=== PATIENT | female | born 1975 | race Caucasian/White ===

== ENCOUNTER 2016-05-02 11:24 | Emergency (ER) | payer OTHER ==
[~2016-05-02] VITALS: Ht 167.6 cm; Wt 74.9 kg
[~2016-05-02 11:24] MED LIST: ANTIBIOTIC; BACLOFEN10 MG; BACTRIM,SEPT1 TABLET PO; BCP; CLARITIN10 M3 PO; DEPO-PROVER150 MG/ML; ESCITALOPRAM OXA5 MG PO; ESOMEPRAZOLE MA40 MG PO; FLINTSTONES1 TABLET PO; FLONASE16 G1 BOTH NARES; FLOVENT DISKUS1 DIS2 IH; FLUTICASONE PRO16 GM; IBUPROFEN800 MG PO; IMITREX50 MG PO; IRON; LORATADINE10 M2; MICROGESTIN FE1 EAC1 PO; MOBIC7.5 MG PO; MOTRIN600 MG PO; MOTRIN800 MG PO; NAPROSYN500 MG PO; NAPROXEN; NAPROXEN500 MG PO; OMEPRAZOLE; OMEPRAZOLE40 M1 PO; ORTHOTRICYCLINE; PEPCID20 MG PO; PRILOSEC40 MG PO; PROAIR HFA8.5 GM; PROAIR HFA8.5 GM IH; PROMETHAZINE HC25 M1 PO; RANITIDINE HCL150 M1; SKELAXIN800 MG PO; SUMATRIPTAN SUC50 MG PO; TRIAMTERENE-HC1 EACH; TYLENOL WITH C1 EACH PO; ULTRAM50 MG PO; VICODIN 5-3001 EACH PO; VICODIN 5-5001 EACH PO; VICODIN,LORT1 TABLET PO; ZANTAC150 MG PO; [UNRECOGNIZED DRUG - CODE]; [UNRECOGNIZED DRUG - REMARK]
[2016-05-02 12:46] LABS: HEMATOCRIT 42.7 % (36.0-46.0); MCH 31.9 PG (29.0-34.0); MCHC 33.7 G/DL (30.0-36.0); MCV 94.7 FL (83-99); PLATELET COUNT 290 K/uL (156-360); RBC DIS.WIDTH-CV 12.2 % (11.8-14.6); RBC DIS.WIDTH-SD 42.4 % (39-53); RED BLOOD COUNT 4.51 M/uL (3.80-5.20); WHITE BLOOD COUNT 6.5 K/uL (4.1-10.2)
[2016-05-02 13:03] LABS: CHLORIDE 104 mEq/L (99-109); POTASSIUM 3.5 mEq/L (3.7-5.4); SODIUM 140 mEq/L (136-147)
[2016-05-02 13:04] LABS: GLUCOSE 83 mg/dL (70-99)
[2016-05-02 13:06] LABS: ANION GAP 9 MEQ/L (2-14)
[2016-05-02 13:08] LABS: GFR ESTIMATE (CALCULATED) > 59 mL/min/
[2016-05-02 13:09] LABS: UREA NITROGEN (BUN) 11 mg/dL (9-23)
[2016-05-02 13:11] LABS: TROP-I INTERPRETATION NEGATIVE; TROPONIN-I < 0.01 ng/mL (0.0-0.30)
[2016-05-02 13:44] LABS: TOTAL BILIRUBIN 0.3 mg/dL (0.0-1.0)
[2016-05-02 13:45] LABS: ALKALINE PHOSPHATASE 80 IU/L (3-129)
[2016-05-02 13:48] LABS: DIRECT BILIRUBIN 0.1 mg/dL (0.0-0.3)
[2016-05-02 13:49] LABS: LIPASE 21 U/L (1.0-51.0)
[2016-05-02 13:54] LABS: QUANTITATIVE HCG < 4.0 MIU/ML
[2016-05-02 15:57] LABS: TROP-I INTERPRETATION NEGATIVE; TROPONIN-I < 0.01 ng/mL (0.0-0.30)
[2016-05-02] MEDS ORDERED: OMEPRAZOLE40 M1 PO (16:26)
[2016-05-02 16:57] VITALS: BP 135/91
== END 2016-05-02 16:59 | disposition home or self-care (01) ==
LOC: EME 11:24
PROVIDERS: Physician Assistant
DX: R07.9 Chest pain, unspecified (principal); K21.9 Gastro-esophageal reflux disease without esophagitis; R42 Dizziness and giddiness; R51 Headache
CPT/HCPCS: 71020; 80048; 80076; 83690; 84484; 84702; 85027; 93005; 99281; 99285

== ENCOUNTER 2016-11-07 09:15 | Day surgery (SDC) | payer OTHER ==
[~2016-11-07] VITALS: Ht 157.5 cm; Wt 81.6 kg
[~2016-11-07 09:15] MED LIST changes: +CALAN40 MG PO; +CYMBALTA60 MG PO; +FLEXERIL10 MG PO; +IRON325 M1 PO; +QVAR 40 MCG IN7.3 GM IH; +SINEQUAN10 MG PO; +TESSALON200 MG PO; +VITAMIN D31000 UNIT PO; +WELLBUTRIN100 MG PO; +ZOMIG5 MG PO; +[UNRECOGNIZED DRUG - OTHER] PO
[2016-11-07 10:16] VITALS: BP 123/83
[2016-11-07] MEDS ORDERED: ENDOCET 5-3251 EACH PO (11:59)
[2016-11-07 13:40] VITALS: BP 148/93
[2016-11-07 14:40] VITALS: BP 128/77
[2016-11-07 16:54] VITALS: BP 142/84
== END 2016-11-07 16:55 | disposition home or self-care (01) ==
LOC: SDC 09:15
DX: Z30.2 Encounter for sterilization (principal); N92.0 Excessive and frequent menstruation with regular cycle; I10 Essential (primary) hypertension; J45.909 Unspecified asthma, uncomplicated; G80.9 Cerebral palsy, unspecified; K21.9 Gastro-esophageal reflux disease without esophagitis; E78.00 Pure hypercholesterolemia, unspecified
CPT/HCPCS: J0131; J0690; J1100; J1170; J1885; J2250; J2405; J2765; J3010

== ENCOUNTER 2016-12-09 10:39 | Emergency (ER) | payer OTHER ==
[~2016-12-09] VITALS: Ht 160 cm; Wt 75.1 kg
[~2016-12-09 10:39] MED LIST changes: +ENDOCET 5-3251 EACH PO
[2016-12-09 11:28] LABS: HEMATOCRIT 47.6 % (36.0-46.0); MCH 32.4 PG (29.0-34.0); MCHC 34.5 G/DL (30.0-36.0); MCV 94.1 FL (83-99); MEAN PLAT.VOLUME 9.2 uM^3 (9.5-12.4); PLATELET COUNT 277 K/uL (156-360); RBC DIS.WIDTH-CV 12.1 % (11.8-14.6); RED BLOOD COUNT 5.06 M/uL (3.80-5.20); WHITE BLOOD COUNT 9.8 K/uL (4.1-10.2)
[2016-12-09 11:39] LABS: CHLORIDE 105 mEq/L (99-109); POTASSIUM 3.9 mEq/L (3.7-5.4); SODIUM 142 mEq/L (136-147)
[2016-12-09 11:41] LABS: GLUCOSE 98 mg/dL (70-99)
[2016-12-09 11:42] LABS: ANION GAP 16 MEQ/L (2-14)
[2016-12-09 11:43] LABS: TOTAL BILIRUBIN 0.5 mg/dL (0.0-1.0)
[2016-12-09 11:44] LABS: ALKALINE PHOSPHATASE 83 IU/L (3-129)
[2016-12-09 11:45] LABS: GFR ESTIMATE (CALCULATED) > 59 mL/min/
[2016-12-09 11:46] LABS: UREA NITROGEN (BUN) 17 mg/dL (9-23)
[2016-12-09 11:53] LABS: QUANTITATIVE HCG < 4.0 MIU/ML
[2016-12-09 12:12] LABS: ADD MIUA? YES; BILIRUBIN MODERATE; BLOOD SMALL; COLOR AMBER ((YELLOW)); GLUCOSE (STRIP) NEGATIVE; KETONES 5; LEUKOCYTES MODERATE; NITRITE NEGATIVE; PROTEIN (STRIP) 100
[2016-12-09 12:43] LABS: BACTERIA RARE /HPF; EPITHELIAL CELLS 4+ /HPF; HYALINE CASTS 0-5 /LPF; MUCUS 4+ /LPF; RED BLOOD CELLS NONE SEEN /HPF (0-5); UCUL ADDED? YES
[2016-12-09 12:58] LABS: ICTOTEST NEGATIVE
[2016-12-09] MEDS ORDERED: BENTYL20 MG PO (13:34)
[2016-12-09] MEDS ORDERED: ZOFRAN4 MG PO (13:34)
[2016-12-09] MEDS ORDERED: IMODIUM MS REL1 EACH PO (13:34)
[2016-12-09] MEDS ORDERED: BACTRIM,SEPT1 TABLET PO (14:00)
[2016-12-09 14:35] VITALS: BP 129/91
== END 2016-12-09 14:37 | disposition home or self-care (01) ==
LOC: EME 10:39
DX: K52.9 Noninfective gastroenteritis and colitis, unspecified (principal); N39.0 Urinary tract infection, site not specified; G80.9 Cerebral palsy, unspecified; I10 Essential (primary) hypertension
CPT/HCPCS: 80053; 81003; 84702; 85027; 87086; 87493; 99281; 99284; J1885; J7040

== ENCOUNTER 2017-06-05 15:46 | Emergency (ER) | payer OTHER ==
[~2017-06-05] VITALS: Ht 157.5 cm; Wt 76.0 kg
[~2017-06-05 15:46] MED LIST changes: +BENTYL20 MG PO; +IMODIUM MS REL1 EACH PO; +ZOFRAN4 MG PO
[2017-06-05 17:55] LABS: SERUM ETHYL ALCOHOL < 10 mg/dL
[2017-06-05 17:56] LABS: SOURCE SWAB
[2017-06-05 18:07] LABS: QUANTITATIVE HCG < 4.0 MIU/ML
[2017-06-05 19:31] VITALS: BP 128/92
[2017-06-06 10:26] LABS: TREPONEMA ANTIBODY NEGATIVE (NEGATIVE)
[2017-06-06 12:04] LABS: HEPATITIS B SURFACE ANTIGEN Nonreactive; HEPATITIS C ANTIBODY Nonreactive
[2017-06-06 12:05] LABS: ANTI-HEPATITIS A VIRUS (IGM) Nonreactive; ANTI-HEPATITIS B CORE (IGM) Nonreactive
[2017-06-06 12:06] LABS: HIV-1/2 AB/AG COMBO Nonreactive
== END 2017-06-05 19:39 | disposition home or self-care (01) ==
LOC: EME 15:46
PROVIDERS: Emergency Medicine Emergency Medical Services
DX: T76.21XA Adult sexual abuse, suspected, initial encounter (principal); G80.9 Cerebral palsy, unspecified; Z91.040 Latex allergy status
CPT/HCPCS: 80074; 84702; 86780; 87389; 87491; 87591; 99281; 99285; G0480; J0696